=== PATIENT | female | born 1975 | race Two or more races ===

== ENCOUNTER 2021-05-24 00:54 | Emergency (ER) | payer MEDICAID ==
[~2021-05-24] VITALS: Ht 160 cm; Wt 68.0 kg
[2021-05-24 01:43] VITALS: BP 134/70
== END 2021-05-24 05:05 | disposition left against medical advice (07) ==
LOC: ER 01:02
DX: Z53.21 Procedure and treatment not carried out due to patient leaving prior to being seen by health care provider (principal)

== ENCOUNTER 2021-11-15 05:06 | Emergency (ER) | payer MEDICAID ==
[~2021-11-15] VITALS: Ht 160 cm; Wt 65.8 kg
--- NOTE | 2021-11-15 06:50 | NUR ---
BIBSELF C/O FEELING NAUSEOUS FOR THE PAST WEEK AND SINUS CONGESTION. AWAKE AND ALERT X4 BREATHING UNLABORED AMBULATORY WITH STEADY GAIT.
--- NOTE | 2021-11-15 06:58 | NUR ---
URINE COLLECTED AND SENT TO LAB
--- NOTE | 2021-11-15 07:03 | NUR ---
COVID SWAB COLLECTED AND SENT TO LAB
[2021-11-15 08:27] LABS: BILIRUBIN,URINE NEGATIVE (NEGATIVE); COLOR,URINE YELLOW (YELLOW); LEUKOCYTE ESTERASE ,URINE NEGATIVE (NEGATIVE); NITRITE, URINE NEGATIVE (NEGATIVE); PROTEIN,URINE NEGATIVE (NEGATIVE); UGLUCOSE NEGATIVE (NEGATIVE)
[2021-11-15 08:51] LABS: BACTERIA,URINE Few /HPF (None Seen); SQUAMOUS EPITHELIAL CELL,UR Few /HPF (None Seen); URINE AMORPHOUS URATE Moderate /HPF (None Seen); WBC,URINE NONE SEEN /HPF (0-3)
[2021-11-15 08:52] LABS: MUCUS,URINE Few /LPF (None Seen)
[2021-11-15] MEDS ORDERED: DOXY100C2 PO (09:05)
[2021-11-15] MEDS ORDERED: CEFTRIAXONE 500 MG VIAL ONE (09:07)
[2021-11-15] MEDS ORDERED: LIDOCAINE /MPF 1% VIAL 5 ML VIAL ONE (09:08)
[2021-11-15 09:20] VITALS: BP 124/76
--- NOTE | 2021-11-15 09:20 | NUR ---
Patient discharged to home in stable condition. Written and verbal after care instructions given. Patient verbalizes understanding of instruction.
[2021-11-15] MEDS ORDERED: CEFTRIAXONE 1 G VIAL IM ONE (09:30)
== END 2021-11-15 09:21 | disposition home or self-care (01) ==
LOC: ER 05:21
DX: R09.81 Nasal congestion (principal); K74.60 Unspecified cirrhosis of liver; Z20.822 Contact with and (suspected) exposure to COVID-19; E11.9 Type 2 diabetes mellitus without complications
CPT/HCPCS: 99283; 87426; 96372; 84703; 81001; J0696; J3490; C9803

== ENCOUNTER 2024-12-14 15:28 | Emergency (ER) | payer MEDICAID ==
[~2024-12-14] VITALS: Ht 160 cm; Wt 59.0 kg
[~2024-12-14 15:28] MED LIST: DOXY100C2 PO
[2024-12-14] MEDS ORDERED: AZITHROMYCIN 250 MG TABLET ONE (16:35)
[2024-12-14] MEDS ORDERED: CEFTRIAXONE 500 MG VIAL ONE (16:35)
[2024-12-14] MEDS ORDERED: LIDOCAINE 1% INJ 50 ML MDV IJ ONE (16:35)
[2024-12-14] MEDS: CEFTRIAXONE 500 MG VIAL IM ONE (16:48)
[2024-12-14] MEDS: AZITHROMYCIN 250 MG TABLET PO ONE (16:49)
[2024-12-14] MEDS ORDERED: METR500T PO (16:54)
[2024-12-14] MEDS ORDERED: AZIT500T4 PO (16:54)
[2024-12-14 17:07] LABS: APPEARANCE,URINE CLEAR (CLEAR); BLOOD, URINE NEGATIVE Ery/uL (NEGATIVE); LEUKOCYTE ESTERASE ,URINE NEGATIVE (NEGATIVE); NITRITE, URINE NEGATIVE (NEGATIVE); UGLUCOSE NEGATIVE (NEGATIVE)
[2024-12-14 17:09] LABS: PREGNANCY TEST URINE QUAL NEGATIVE (NEGATIVE)
[2024-12-14 17:52] VITALS: BP 118/75; TEMP 98.1; O2SAT 100
[2024-12-14 22:07] LABS: HIV-1/2 ANTIBODY NON REACTIVE (NONREACTIVE)
[2024-12-16 06:10] LABS: RAPID PLASMA REAGIN QUAL. Non Reactive (Non Reactive)
[2024-12-17 05:09] LABS: CHLAMYDIA TRACHOMATIS NAA Negative (Negative); NEISSERIA GONORRHOEAE NAA Negative (Negative)
== END 2024-12-14 17:16 | disposition home or self-care (01) ==
LOC: ER 15:41
DX: Z11.3 Encounter for screening for infections with a predominantly sexual mode of transmission (principal); N89.8 Other specified noninflammatory disorders of vagina; E11.9 Type 2 diabetes mellitus without complications; Z20.2 Contact with and (suspected) exposure to infections with a predominantly sexual mode of transmission
CPT/HCPCS: 99283; 96372; 81003; 36415; 87806; 87491; 87591; 84703 ×2; J3490; J0696; 86592; 86593

== ENCOUNTER 2024-12-23 17:49 | Emergency (ER) | payer MEDICAID ==
[~2024-12-23] VITALS: Ht 160 cm; Wt 59.0 kg
[~2024-12-23 17:49] MED LIST changes: +AZIT500T4 PO; +METR500T PO
[2024-12-23 18:18] VITALS: BP 139/79; TEMP 98.3; O2SAT 98
[2024-12-23] MEDS ORDERED: FLUCONAZOLE (100 MG) 100 MG TABLET ONE (19:06)
[2024-12-23] MEDS ORDERED: FLUCONAZOLE (100 MG) 100 MG TABLET PO ONE (19:30)
== END 2024-12-23 19:19 | disposition home or self-care (01) ==
LOC: ER 17:51
DX: N89.8 Other specified noninflammatory disorders of vagina (principal); E11.9 Type 2 diabetes mellitus without complications; R03.0 Elevated blood-pressure reading, without diagnosis of hypertension; Z11.3 Encounter for screening for infections with a predominantly sexual mode of transmission; Z60.2 Problems related to living alone
CPT/HCPCS: 87210-TC